=== PATIENT | female | born 1975 ===

== ENCOUNTER 2023-04-04 12:07 | Emergency (ER) | payer SELFPAY ==
[2023-04-04] MEDS ORDERED: Sodium Chloride 0.9% 10 ML Syringe FLUSH PRN (13:06)
[2023-04-04] MEDS ORDERED: Acetaminophen 500 MG Tab PO ONE (13:07)
[2023-04-04] MEDS ORDERED: Sodium Chloride 0.9% 1,000 ML IV ONE (13:07)
[2023-04-04] MEDS ORDERED: Ondansetron 4 MG/2 ML SDV IVPUSH ONE (13:07)
== END 2023-04-04 14:32 | disposition home or self-care (01) ==
LOC: DL.ED 12:07
DX: G43.909 Migraine, unspecified, not intractable, without status migrainosus (principal); E11.9 Type 2 diabetes mellitus without complications; Z88.1 Allergy status to other antibiotic agents; Z88.5 Allergy status to narcotic agent; Z88.8 Allergy status to other drugs, medicaments and biological substances
CPT/HCPCS: 96374; 99283; A9270; J2405; J7030; J3490